=== PATIENT | male | born 1990 | race Caucasian/White ===

== ENCOUNTER 2017-09-28 10:41 | Observation (INO) | payer OTHER ==
[~2017-09-28] VITALS: Ht 182.9 cm; Wt 87.0 kg
[2017-09-28 10:45] VITALS: BP 126/75; PULSE 63; RESP 12; TEMP 98.6; O2SAT 100
[2017-09-28 11:09] LABS: AUTOMATED NEUTROPHIL # 4.9 TH/MM3 (1.8-7.7); BASOPHIL % 0.3 % (0.0-2.0); EOSINOPHIL # 0.1 TH/MM3 (0-0.4); EOSINOPHIL % 1.2 % (0.0-4.0); HEMATOCRIT 47.3 % (39.0-51.0); HEMO FLAGS DIFF FINAL; LYMPH % 25.8 % (9.0-44.0); LYMPHOCYTE # 1.9 TH/MM3 (1.0-4.8); MEAN CELL VOLUME 85.2 FL (80.0-100.0); MEAN CORPUSCULAR HGB CONC 34.1 % (32.0-36.0); MONO % 6.1 % (0.0-8.0); NEUT % 66.6 % (16.0-70.0); PLATELET COUNT 222 TH/MM3 (150-450); RED BLOOD COUNT 5.55 MIL/MM3 (4.50-5.90); RED CELL DISTRIBUTION WIDTH 13.4 % (11.6-17.2); WHITE BLOOD COUNT 7.3 TH/MM3 (4.0-11.0)
[2017-09-28 11:27] LABS: ANION GAP 5 MEQ/L (5-15); BICARBONATE 30.4 MEQ/L (21.0-32.0); BLOOD UREA NITROGEN 11 MG/DL (7-18); CHLORIDE 103 MEQ/L (98-107); GLOMERULAR FILTRATION RATE 90 ML/MIN (>89); POTASSIUM 3.9 MEQ/L (3.5-5.1); SODIUM (NA) 138 MEQ/L (136-145)
[2017-09-28 11:32] LABS: CREATINE KINASE 102 U/L (39-308)
--- NOTE | 2017-09-28 11:34 | RADRPT ---
EXAM DATE/TIME: 09/28/2017 11:08 [place] COMPARISON: No previous studies available for comparison. INDICATIONS : Midsternal radiating into left arm chest pains x5 days. MEDICAL HISTORY : None. SURGICAL HISTORY : None. ENCOUNTER: Initial ACUITY: 4 - 6 days PAIN SCORE: 8/10 LOCATION: Left chest FINDINGS: Portable AP view of the chest demonstrates a normal-sized cardiac silhouette. No effusion, consolidat ion, or pneumothorax is visualized. The bones and soft tissues demonstrate no acute abnormality. CONCLUSION: No acute cardiopulmonary abnormality is identified. Christopher Mak MD on September 28, 2017 at 11:32 Board Certified Radiologist. This report was verified electronically.
[2017-09-28 12:41] VITALS: BP 125/78; PULSE 52; RESP 20; O2SAT 100
--- NOTE | 2017-09-28 12:41 | PD ---
HPI Chief Complaint: Chest Pain Time Seen by Provider: 12:22 Travel History International Travel<30 days: Yes Contact w/Intl Traveler<30days: Yes Name of Country Traveled to: [place] Traveled to known affect area: No History of Present Illness HPI 26-year-old otherwise healthy male presents to the emergency room for evaluation of left-sided chest pain for the past 4 days. Onset of pain was after having spent 2 hours in the sun doing yard work. He went to [facility] 4 days ago after experiencing chest pain and had a chest pain workup in ED that was completely unremarkable. Patient presents with his documentation from ED which shows normal chest x-ray, unremarkable labs, and unremarkable EKG. He was told to follow up with atv mechanic. States he cannot get in until October and he is nervous about the persistence of pain. Pain is constant, left-sided, not worse with exertion. States he occasionally has exacerbations even at rest where he feels worsening tightness and associated shortness of breath, clamminess, and nausea. He has had one other episode similar to this which occurred 3 months ago after having taken C4 (pre- workout), but he was never evaluated. Patient states he used to drink large amounts of caffeine, 3 coffees per day, but has cut back since he developed this pain a few days ago. No chronic medical conditions or daily medications. He denies any illicit drug use at this time or ever. Occasional alcohol. Denies any family history of heart disease. PFSH Past Surgical History Genitourinary Surgery: Yes (left kidney removed) Social History Alcohol Use: Yes Tobacco Use: No Substance Use: No Allergies-Medications (Allergen,Severity, Reaction): Coded Allergies: meperidine (Verified Allergy, Unknown, 09/28/17) Reported Meds & Prescriptions Reported Meds & Active Scripts Active No Active Prescriptions or Reported Medications Review of Systems Except as stated in HPI: all other systems reviewed are Neg Physical Exam Narrative GENERAL: Well-nourished, well-developed male in no acute distress. Afebrile. Ambulatory. SKIN: Focused skin assessment warm/dry. HEAD: Normocephalic. EYES: No scleral icterus. No injection or drainage. NECK: Supple, trachea midline. No JVD or lymphadenopathy. CARDIOVASCULAR: Regular rate and rhythm without murmurs, gallops, or rubs. RESPIRATORY: Breath sounds equal bilaterally. No accessory muscle use. PSYCHIATRIC: No delusional thought processes. No hallucinations. Data Data Last Documented VS Vital Signs Date Time Temp Pulse Resp B/P (MAP) Pulse Ox O2 Delivery O2 Flow Rate FiO2 09/28/17 12:56 72 20 121/67 (85) 100 Room Air 09/28/17 10:45 98.6 Orders Orders Electrocardiogram (09/28/17 10:48) Complete Blood Count With Diff (09/28/17 10:48) Basic Metabolic Panel (Bmp) (09/28/17 10:48) Ckmb (Isoenzyme) Profile (09/28/17 10:48) Troponin I (09/28/17 10:48) Chest, Single Ap (09/28/17 10:48) Iv Access Insert/Monitor (09/28/17 10:48) Ecg Monitoring (09/28/17 10:48) Oxygen Administration (09/28/17 10:48) Oximetry (09/28/17 10:48) CKMB (09/28/17 10:55) CKMB% (09/28/17 10:55) D-Dimer (09/28/17 12:35) Bilateral Bp Monitoring (09/28/17 12:35) Aspirin Chew (Aspirin Chew) (09/28/17 12:45) Nitroglycerin Sl (Nitrostat Sl) (09/28/17 12:45) Activity Bed Rest With Brp (09/28/17 13:27) Vital Signs (Adult) Q4H (09/28/17 13:27) Cardiac Rhythm .As Directed (09/28/17 13:27) Notify Dr: Other .PRN (09/28/17 13:27) Notify Parameters (09/28/17 13:27) Resp Oxygen Nasal Cannula (09/28/17 ) Ckmb (Isoenzyme) Profile (09/28/17 13:55) Ckmb (Isoenzyme) Profile (09/28/17 16:55) Troponin I (09/28/17 13:55) Troponin I (09/28/17 16:55) Electrocardiogram (09/28/17 13:55) Electrocardiogram (09/28/17 16:55) ^ Obtain (09/28/17 13:27) Sodium Chloride 0.9% Flush (Ns Flush) (09/28/17 13:30) Sodium Chloride 0.9% Flush (Ns Flush) (09/28/17 21:00) Feed Adviser / Telemetry [place].Q8H (09/28/17 13:27) Admit Order (Ed Use Only) (09/28/17 13:27) Labs Laboratory Tests Test 09/28/17 10:55 09/28/17 12:50 White Blood Count 7.3 TH/MM3 Red Blood Count 5.55 MIL/MM3 Hemoglobin 16.1 GM/DL Hematocrit 47.3 % Mean Corpuscular Volume 85.2 FL Mean Corpuscular Hemoglobin 29.0 PG Mean Corpuscular Hemoglobin Concent 34.1 % Red Cell Distribution Width 13.4 % Platelet Count 222 TH/MM3 Mean Platelet Volume 8.3 FL Neutrophils (%) (Auto) 66.6 % Lymphocytes (%) (Auto) 25.8 % Monocytes (%) (Auto) 6.1 % Eosinophils (%) (Auto) 1.2 % Basophils (%) (Auto) 0.3 % Neutrophils # (Auto) 4.9 TH/MM3 Lymphocytes # (Auto) 1.9 TH/MM3 Monocytes # (Auto) 0.4 TH/MM3 Eosinophils # (Auto) 0.1 TH/MM3 Basophils # (Auto) 0.0 TH/MM3 CBC Comment DIFF FINAL Differential Comment Blood Urea Nitrogen 11 MG/DL Creatinine 1.00 MG/DL Random Glucose 99 MG/DL Calcium Level 9.3 MG/DL Sodium Level 138 MEQ/L Potassium Level 3.9 MEQ/L Chloride Level 103 MEQ/L Carbon Dioxide Level 30.4 MEQ/L Anion Gap 5 MEQ/L Estimat Glomerular Filtration Rate 90 ML/MIN Total Creatine Kinase 102 U/L Creatine Kinase MB 1.0 NG/ML Troponin I LESS THAN 0.02 NG/ML D-Dimer Quantitative (PE/DVT) LESS THAN 0.19 MG/L FEU MDM Medical Decision Making Medical Screen Exam Complete: Yes Emergency Medical Condition: Yes Medical Record Reviewed: Yes Differential Diagnosis Angina, CAD, anxiety, caffeine side effect Narrative Course 26-year-old otherwise healthy male presents to the emergency room for evaluation of persistent, left-sided chest pain for the past 4 days. Patient states pain started after working in his yard. He went to [facility] immediately after onset and was diagnosed with dehydration after having negative EKG, chest x-ray, and labs. States the ER physician even put an ultrasound probe on his heart. He was supposed to follow up with cardiology but could not get an appointment until next month. Patient is concerned because pain has persisted. Physical exam is reassuring. Patient has resting comfortably and in no acute distress. Vital signs stable. Heart rate 52 bpm, 100% on room air. Patient reports history of bradycardia. CBC and BMP are completely unremarkable and very similar to patient's previous labs from [facility]. Troponin is less than 0.02. EKG shows sinus bradycardia with a rate of [address] changes; also almost identical to previous EKG from [facility]. Chest x-ray is negative. Patient was given aspirin and nitroglycerin in ED. Reports moderate improvement chest pain after nitroglycerin. Although patient has few risk factors for CAD, the quality/ location of pain and improvement after nitroglycerin warrants chest pain center observation. Patient is amenable to plan. Diagnosis Primary Impression: Chest pain Qualified Codes: R07.89 - Other chest pain Scripts No Active Prescriptions or Reported Meds Condition: Stable Savanna Ventuar Sep 28, 2017 12:41
[2017-09-28] MEDS ORDERED: ASPIRIN 81 MG CHEW TAB PO ONE (12:45)
[2017-09-28] MEDS ORDERED: NITROGLYCERIN 0.4 MG SL 25 TABS/BTL SL ONE (12:45)
[2017-09-28 12:56] VITALS: BP 121/67; PULSE 72; RESP 20; O2SAT 100
[2017-09-28] MEDS ORDERED: SODIUM CHLORIDE 0.9% FLUSH 10 ML FLUSH IV FLUSH PRN (13:30)
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
[2017-09-28] MEDS ORDERED: ONDANSETRON HCL 4 MG/2 ML VIAL IV PUSH PRN (14:30)
[2017-09-28] MEDS ORDERED: NITROGLYCERIN 0.4 MG SL 25 TABS/BTL SL PRN (14:30)
[2017-09-28] MEDS ORDERED: ACETAMINOPHEN 500 MG CPLT PO PRN (14:30)
[2017-09-28 14:53] LABS: CREATINE KINASE 90 U/L (39-308)
[2017-09-28 17:41] LABS: CREATINE KINASE 85 U/L (39-308)
[2017-09-28 18:00] VITALS: PULSE 55
[2017-09-28 18:02] VITALS: BP 129/75; PULSE 55; RESP 24; TEMP 98; O2SAT 96
--- NOTE | 2017-09-28 18:40 | HHI.DCPOC ---
Discharge Care Plan Diagnosis: (1) Atypical chest pain (2) Musculoskeletal chest pain Goals to Promote Your Health * To prevent worsening of your condition and complications * To maintain your health at the optimal level Directions to Meet Your Goals Take your medications as prescribed Follow your dietary instruction Follow activity as directed Keep your appointments as scheduled Take your immunizations and boosters as scheduled If your symptoms worsen call your PCP, if no PCP go to Urgent Care Center or Emergency Room Smoking is Dangerous to Your Health. Avoid second hand smoke Call the 24-hour hour crisis hotline for domestic abuse at Kate Warren Sep 28, 2017 18:40
[2017-09-28 18:47] VITALS: O2SAT 99
[2017-09-28] MEDS ORDERED: SODIUM CHLORIDE 0.9% FLUSH 10 ML FLUSH IV FLUSH SCH (21:00)
[2017-09-29] MEDS ORDERED: ASPIRIN 325 MG TAB PO SCH (09:00)
--- NOTE | 2017-09-29 14:36 | TR ---
Date Performed: 09/28/2017 Time Performed: 18:48:03 DOCTOR: Lulu Bryant DRUG LIST: CLINICAL HISTORY: REASON FOR TEST: Chest pain REASON FOR ENDING: OBSERVATION: CONCLUSION: Lukasz protocol completed. Stopped sec to exceeding target heart rate.Maximum RQ=056 Target HR Ceeadoby=719.0% Maximum ZE=098/94 Total Exercise Time=9:01. No reprod chest pain. Chest dis comfort reportedly resolved in stage 3. Normal bp response. No ectopy. No st changes. T wave inversio ns before and during exam. Recovery quick and unremarkable. COMMENTS:
--- NOTE | 2017-09-29 18:18 | EKG ---
Date Performed: 09/28/2017 Time Performed: 17:00:50 PTAGE: 26 years EKG: SINUS BRADYCARDIA BORDERLINE ECG PREVIOUS TRACING : 09/28/2017 13.45 DOCTOR: Leonidas Gmóez Interpretating Date/Time 09/29/2017 18:14:15
--- NOTE | 2017-09-29 18:22 | EKG ---
Date Performed: 09/28/2017 Time Performed: 13:45:27 PTAGE: 26 years EKG: SINUS BRADYCARDIA WITH SINUS ARRHYTHMIA BORDERLINE ECG NO PREVIOUS TRACING DOCTOR: Leonidas Gómez Interpretating Date/Time 09/29/2017 18:16:49
--- NOTE | 2017-09-29 18:27 | EKG ---
Date Performed: 09/28/2017 Time Performed: 10:52:49 PTAGE: 26 years EKG: SINUS BRADYCARDIA BORDERLINE ECG NO PREVIOUS TRACING DOCTOR: Leonidas Gómez Interpretating Date/Time 09/29/2017 18:18:51
== END 2017-09-28 20:14 | disposition home or self-care (01) ==
LOC: NEPD 10:41 → NEDA 13:32 → NEPFCDU 16:46
PROVIDERS: ADMIT Internal Medicine Interventional Cardiology; ATTEND Internal Medicine Interventional Cardiology
DX: R07.89 Other chest pain (principal); R11.0 Nausea; R00.1 Bradycardia, unspecified
CPT/HCPCS: 71010; 80048; 82550; 82552; 84484; 85025; 85379; 93005; 93017; G0378